=== PATIENT | male | born 1955 | race African-American/Black ===

== ENCOUNTER 2024-11-25 13:41 | Inpatient (IN) ==
[2024-11-25] MEDS: METHYLPREDNISOLONE SOD SUCC/PF 125 MG/2 ML VIAL IVP ONE (13:50)
--- NOTE | 2024-11-25 13:53 | Emergency Department Note ---
HPI - General Adult General Chief complaint: SOB -Shortness of Breath Stated complaint: SOB Time Seen by Provider: 11/25/24 13:46 Source: patient Mode of arrival: walk-in Limitations: no limitations History of Present Illness HPI narrative: This is a 69 year old male patient that presents to the ER with c/o cough, SOB, chest tightness, wheezing since last night. Patient has a hx of COPD. Patient denies any abdominal pain, back pain, fever, chills or N/V. patient denies any numbness, tingling, or weakness Onset (ago): hour(s) (24) Relieving factors: Reports none Exacerbating factors: Reports none Associated symptoms: Reports chest pain (tightness) and cough Treatments prior to arrival: Reports none Related Data Home Medications Medication Instructions Recorded Confirmed albuterol sulfate 90 mcg/actuation 2 puff inhalation Q4H 10/15/24 10/15/24 aerosol inhaler budesonide 160 mcg-glycopyr 9 2 inh inhalation BID 10/15/24 10/15/24 mcg-formot 4.8 mcg/actuation HFA inhaler ([employer]) fluticasone propionate 50 2 spray intranasal DAILY 10/15/24 10/15/24 mcg/actuation nasal spray,suspension levothyroxine 200 mcg tablet 200 mcg PO DAILY 10/15/24 10/15/24 tadalafil 5 mg tablet 5 mg PO DAILY 10/15/24 10/15/24 tamsulosin 0.4 mg capsule 0.4 mg PO DAILY 10/15/24 10/15/24 Allergies Allergy/AdvReac Type Severity Reaction Status Date / Time No Known Drug Allergies Allergy Verified 11/25/24 13:50 Review of Systems Status of ROS 10 or more systems reviewed and unremark able except as noted in history and below Constitutional Denies: fever, chills, change in weight, fatigue, malaise or night sweats Eyes Denies: change in vision, blurry vision, blind spots, light sensitivity, eye discomfort or eye discharge Ears, nose, mouth, and throat Denies: throat pain, neck pain, throat swelling, difficulty swallowing, hoarseness, mouth pain or swelling of lips/tongue Cardiovascular Reports: chest pain, shortness of breath with exertion and shortness of breath when lying down; Denies: palpitations, edema, swelling of feet/ankles, lightheadedness, leg pain with exertion or bluish discoloration of hands/feet Respiratory Reports: shortness of breath, cough and wheezing; Denies: stridor, pain on inspiration, change in phlegm color, coughing up blood or chest congestion Gastrointestinal Denies: abdominal pain, nausea, vomiting, coffee grounds in vomit, heartburn, diarrhea or constipation Genitourinary Denies: painful urination, urinary frequency, urinary urgency, blood in urine, genital pain or genital lesion Musculoskeletal Denies: back pain, neck pain, extremity pain, extremity swelling, joint pain, limited range of motion or joint swelling Integumentary/Breast Denies: rash, itching, redness, skin pain, skin tenderness, skin swelling, sores or new lesion Neurological Denies: headache, numbness in extremities, weakness in extremities, lack of coordination, dizziness or vertigo Psychiatric Denies: anxiety, mood swings, panic attacks, change in sleep pattern, hopelessness or loss of interest Endocrine Denies: excessive urination, excessive thirst, fatigue, cold intolerance or excessive sweating Hematologic/Lymphatic Denies: easy bruising, easy bleeding or enlarged lymph nodes Allergic/Immunologic Denies: hives, throat swelling, tongue swelling, facial swelling, wheezing or itchy eyes PFSH PFS Medical History (Updated 10/20/24 @ 10:32 by Jose Page RN) Colostomy in place Hx of intestinal obstruction Arthritis COPD (chronic obstructive pulmonary disease) Surgical History Hx of hernia repair Social History (Updated 10/15/24 @ 11:15 by Jessica Schaffer RN) Smoking status: current every day smoker What tobacco products do you use: cigarettes Cigarettes per day: 5 Years smoked: 40 Smoking pack-years: 10.00 Within the past year, how often did you have a drink containing alcohol: never Score interpretation: A score less than 4 is consistent with normal alcohol consumption. Non-prescribed substance use: denies use Are you now , , , , never or living with a partner: Feel stressed/tense/nervous/anxious/difficulty sleeping: to some extent Life stressors: other Life stressor details: 1 Due to disability, difficulty making decisions: No Exam Constitutional: normal general appearance and no apparent distress Vital Signs - 24 hr 11/25/24 13:43 11/25/24 14:00 11/25/24 14:03 Temperature 98.6 F Pulse Rate 117 H 103 H Respiratory Rate 20 20 Blood Pressure 135/84 135/84 Pulse Oximetry 79 L 83 L 88 L Oxygen Delivery Me thod Room Air Nasal Cannula Oxygen Flow Rate 2 11/25/24 14:28 11/25/24 14:30 Temperature Pulse Rate 101 H Respiratory Rate 20 Blood Pressure 128/80 Pulse Oximetry 93 L 98 Oxygen Delivery Me thod Nasal Cannula Oxygen Flow Rate 3 HENMT: normocephalic, head/scalp atraumatic, hearing grossly normal bilaterally, external ears normal, nasal mucous membranes normal, external nose normal, oral mucous membranes normal and oropharynx normal Eyes: PERRL, EOMs intact bilaterally and conjunctivae normal Neck/C-Spine: visual inspection normal and trachea midline Lymph: no lymphadenopathy noted Chest: inspection of chest normal and palpation of chest normal Respiratory: breath sounds equal bilaterally, abnormal respiratory effort (shallow breathing) and (labored), auscultation abnormal (diminished breath sound), wheezing noted (scattered wheezes), no rales, no retractions, no use of accessory muscles and chest percussion normal Cardiovascular: normal heart rate noted, regular rhythm noted, no gallop, no murmur, no JVD, no clicks, peripheral pulses 2+ throughout and no additional abnormal heart sounds Gastrointestinal: abdomen normal to inspection, abdomen soft to palpation, nontender to palpation, nontender to percussion, nondistended, normoactive bowel sounds, no hepatosplenomegaly, no masses, no pulsatile mass, no ascites and no hernia Genitourinary: no CVA tenderness Back/Pelvis: spine normal to inspection Extremities: normal to inspection, normal to palpation, no tenderness, full ROM, no joint enlargement and no deformity Neurology: no movement abnormality noted, no focal motor deficit noted, no sensory deficits noted, gait normal, speech normal, coordination normal, no pronator drift noted, no fasciculations noted and GCS normal Psychiatry: mental status grossly normal, oriented x3, thought process normal, cooperative and affect normal Skin: skin color normal Course Course Hospital Course: 1508: LS improved after meds and nebs. patient states he is feeling a little better but needs something for a headache. Patient is neurologically intact. VSS, no s/s of acute distress noted Vital Signs Vital signs: Vital Signs Temperature 98.6 F 11/25/24 13:43 Pulse Rate 117 H 11/25/24 13:43 Respiratory Rate 20 11/25/24 13:43 Blood Pressure 135/84 11/25/24 13:43 Pulse Oximetry 79 L 11/25/24 13:43 Oxygen Delivery Method Room Air 11/25/24 13:43 Temperature 98.6 F 11/25/24 13:43 Pulse Rate 101 H 11/25/24 14:30 Respiratory Rate 20 11/25/24 14:30 Blood Pressure 128/80 11/25/24 14:30 Pulse Oximetry 98 11/25/24 14:30 Oxygen Delivery Method Nasal Cannula 11/25/24 14:30 Oxygen Flow Rate 3 11/25/24 14:30 Medical Decision Making Differential Diagnosis Differential Diagnosis: URI, viral illness, dyspnea Medical Records Medical records reviewed: Yes I reviewed the patient's medical records Lab Data Lab results reviewed: Yes I reviewed the patient's lab results Labs: Lab Results 11/25/24 11/25/24 11/25/24 Range/Units 13:48 13:48 14:00 WBC 4.9 (3.7-9.6) K/uL RBC 5.2 (4.40-5.80) M/uL Hgb 15.4 (14.0-17.4) gm/dL Hct 46.5 (41.3-50.1) % MCV 90.0 (81.9-96.5) fl MCH 29.9 (27.6-33.7) pg MCHC 33.2 (33.0-35.7) g/dl RDW 15.1 H (11.0-14.8) % Plt Count 174 (142-355) K/uL MPV 8.3 (6.0-10.4) fl Gran % 59.4 (49.1-73.1) % Lymph % (Auto) 22.2 (17.6-39.05) % [place] % (Auto) 12.9 H (4.5-10.7) % Eos % (Auto) 4.8 H (0.0-4.0) % Baso % (Auto) 0.7 (0.0-1.3) Lymph # (Auto) 1.1 (0.8-2.9) [place] # (Auto) 0.6 (0.2-0.8) Eos # (Auto) 0.2 (0.0-0.3) Baso # (Auto) 0.0 (0.0-0.1) Absolute Gran (auto) 2.9 (2.0-6.2) ABG pH 7.26 L* (7.35-7.45) ABG pCO2 54 H (35-45) mmHg ABG pO2 121 H 161 (60-100) mmHg ABG HCO3 24.2 (22-26) mmo1/L ABG Total CO2 25.9 mmo1/L ABG O2 Saturation 98 (92-100) % ABG Base Excess -3.4 L (-2-2) mmo1/L A-a O2 Gradient 40 mmHg Respiratory Index 0.3 (0-1) FiO2 32.0 % Sodium 136 (136-145) mmol/L Potassium 4.4 (3.6-5.2) mmol/L Chloride 104.0 (98-107) mmol/L Carbon Dioxide 27 (21-32) mmol/L Anion Gap 5.0 (4-14) mEq/L BUN 17 (7-18) mg/dL Creatinine 2.1 H (0.6-1.3) mg/dL Estimated GFR 33.7 (>59.9) Glucose 84 (70-110) mg/dL Calcium 8.7 (8.5-10.1) mg/dL Total Bilirubin 0.45 (0.0-1.0) mg/dL AST 24 (15-37) U/L ALT 17 L (30-65) U/L Alkaline Phosphatase 61 (50-136) U/L Troponin I High Sens 22.50 (4.0-60.4) ng/L B-Natriuretic Peptide 10.1 (0-100) pg/mL Total Protein 8.3 H (6.4-8.2) g/dL Albumin 3.9 (3.4-5.0) g/dL Influenza Type A Ag Negative (Negative) Influenza Type B Ag Negative (Negative) ECG Data Attestation: I have reviewed the pertinent ECG results. Discharge Plan Discharge Patient Disposition: Admitted As Observation Condition: Stable Chief Complaint: SOB -Shortness of Breath Clinical Impression: Acute exacerbation of chronic obstructive pulmonary disease, Hypoxia, Dehydration, Acute on chronic kidney failure Prescriptions: No Action albuterol sulfate 90 mcg/actuation HFA aerosol inhaler 2 puff INHALATION Q4H Patient Comments: INHALE TWO PUFFS BY MOUTH EVERY 4 HOURS fluticasone propionate 50 mcg/actuation spray,suspension 2 spray INTRANASAL DAILY Patient Comments: USE 2 SPRAYS IN EACH NOSTRIL ONCE DAILY levothyroxine 200 mcg tablet 200 mcg PO DAILY Patient Comments: TAKE 1 TABLET BY MOUTH EVERY MORNING ON EMPTY STOMACH 30 MINUTES BEFORE BREAKFAST tadalafil 5 mg tablet 5 mg PO DAILY Patient Comments: TAKE ONE TABLET BY MOUTH DAILY tamsulosin 0.4 mg capsule 0.4 mg PO DAILY Patient Comments: TAKE ONE CAPSULE BY MOUTH ONCE DAILY [employer] 160-9-4.8 mcg/actuation HFA aerosol inhaler 2 inh INHALATION BID Patient Comments: INHALE 2 PUFFS BY MOUTH TWICE DAILY Print Language: Polish Referrals: Garry Frances MD [Primary Care Provider] - Time of Disposition: 15:11
[2024-11-25] MEDS: BUDESONIDE 0.5 MG/2 ML AMPUL.NEB INH ONE (14:02)
[2024-11-25] MEDS: IPRATROPIUM/ALBUTEROL SULFATE 3 ML AMPUL.NEB INH ONE ×2 (14:02→14:27)
[2024-11-25 14:04] LABS: Basophils%(Percent) Auto 0.7 (0.0-1.3); Eosinophils#(Absolute)Auto 0.2 (0.0-0.3); Eosinophils%(Percent) Auto 4.8 % (0.0-4.0); Granulocytes % - Auto 59.4 % (49.1-73.1); Granulocytes#(Absolute)- Auto 2.9 (2.0-6.2); Hematocrit 46.5 % (41.3-50.1); Monocytes #(Absolute)- Auto 0.6 (0.2-0.8); Monocytes %(Percent)- Auto 12.9 % (4.5-10.7); Platelet Count 174 K/uL (142-355); White Blood Count 4.9 K/uL (3.7-9.6)
[2024-11-25 14:31] LABS: Potassium 4.4 mmol/L (3.6-5.2)
[2024-11-25 14:42] LABS: Oxygen Saturation ABG 98 % (92-100)
[2024-11-25 14:45] LABS: Base Excess ABG -3.4 mmo1/L (-2-2); PCO2 ABG 54 mmHg (35-45); PO2 ABG 121 mmHg (60-100); pH ABG 7.26 (7.35-7.45)
[2024-11-25] MEDS: 0.9 % SODIUM CHLORIDE 500 ML IV ONE (15:08)
[2024-11-25] MEDS: ACETAMINOPHEN 500 MG TABLET PO ONE (15:12)
[2024-11-25] MEDS ORDERED: ACETAMINOPHEN 500 MG TABLET PO PRN (17:00)
[2024-11-25] MEDS ORDERED: MAGNESIUM, ALUMINUM HYDROXIDE 30 ML ORAL.SUSP PO PRN (17:00)
[2024-11-25] MEDS ORDERED: bisacodyL 10 MG SUPP.RECT PR PRN (17:00)
[2024-11-25] MEDS: IPRATROPIUM/ALBUTEROL SULFATE 3 ML AMPUL.NEB INH SCH (17:54)
[2024-11-26 04:46] LABS: Potassium 5.8 mmol/L (3.6-5.2)
[2024-11-26 04:49] LABS: Basophils%(Percent) Auto 0.1 (0.0-1.3); Granulocytes % - Auto 81.8 % (49.1-73.1); Granulocytes#(Absolute)- Auto 2.2 (2.0-6.2); Hematocrit 41.4 % (41.3-50.1); Mean Corpuscular Volume 90.2 fl (81.9-96.5); Monocytes #(Absolute)- Auto 0.1 (0.2-0.8); Monocytes %(Percent)- Auto 3.8 % (4.5-10.7); Platelet Count 169 K/uL (142-355); White Blood Count 2.7 K/uL (3.7-9.6)
[2024-11-26] MEDS: 0.9 % SODIUM CHLORIDE 500 ML IV ONE (10:00)
[2024-11-26] MEDS: PANTOPRAZOLE SODIUM 40 MG TABLET.DR PO SCH (10:00)
[2024-11-26] MEDS: ENOXAPARIN SODIUM 40 MG/0.4 ML SYRINGE SUBQ SCH (10:00)
[2024-11-26] MEDS: LEVOTHYROXINE SODIUM 100 MCG TABLET PO SCH (10:00)
[2024-11-26] MEDS: TAMSULOSIN HCL 0.4 MG CAPSULE PO SCH (10:00)
[2024-11-26] MEDS ORDERED: 0.9 % SODIUM CHLORIDE 1000 ML 1,000 ML IV SCH (10:00)
[2024-11-26] MEDS: HYDROCODONE/CHLORPHEN P-STIREX 5 ML SUS.ER.12H PO PRN (10:01)
[2024-11-26] MEDS: METHYLPREDNISOLONE SOD SUCC/PF 40 MG/ML VIAL INJ SCH (10:01)
[2024-11-26 10:32] LABS: Base Excess ABG -2.4 mmo1/L (-2-2); PCO2 ABG 53 mmHg (35-45); PO2 ABG 57 mmHg (60-100); pH ABG 7.28 (7.35-7.45)
[2024-11-26 10:33] LABS: Oxygen Saturation ABG 85 % (92-100)
[2024-11-26] MEDS: 0.9 % SODIUM CHLORIDE 1000 ML 1,000 ML IV SCH (10:49)
[2024-11-26] MEDS: AZITHROMYCIN 500 MG 500 MG in 0.9 % SODIUM CHLORIDE 250 ML IV SCH (10:49)
--- NOTE | 2024-11-26 10:53 | History & Physical Report ---
H&P: HPI History of Present Illness Chief complaint: copd exacerbation,arf on crf, dehydration,hypoxia Narrative: This is a 69 year old male patient that presents to the ER with c/o cough, SOB, chest tightness, wheezing since last night. Patient has a hx of COPD. Patient denies any abdominal pain, back pain, fever, chills or N/V. patient denies any numbness, tingling, or weakness. Admitted patient to med/surg for further observation and treatment. Day one of hospital stay, patient complaining of cough and shortness of breath feels worse today and more tired. Chest X-Ray shows "Enphysematous COPD". Nurse reports breath sounds are tight and not fair air movement this a.m. Patients O2 dropped to 60s this a.m when he got us to walk to the restroom; he received a breathing treatment 10 minutes prior to this event. When respiratory entered room, patient was spO2 was 89%, patient was able to recover to 94%. Nurse encourage patient to use urinal if possible. patient states feels like shooting pain and tight when he tries to force a cough or a breath today Review of Systems Status of ROS 10 or more systems reviewed and unremark able except as noted in history and below Constitutional Denies: fever, chills, change in weight, fatigue, malaise or night sweats Eyes Denies: change in vision, blurry vision, blind spots, light sensitivity, eye discomfort or eye discharge Ears, nose, mouth, and throat Denies: throat pain, neck pain, throat swelling, difficulty swallowing, hoarseness, mouth pain, swelling of lips/tongue or vertigo Cardiovascular Reports: chest pain, shortness of breath with exertion and shortness of breath when lying down; Denies: palpitations, edema, swelling of feet/ankles, lightheadedness, leg pain with exertion or bluish discoloration of hands/feet Respiratory Reports: shortness of breath and cough; Denies: wheezing, stridor, pain on inspiration, change in phlegm color, coughing up blood or chest congestion Gastrointestinal Denies: abdominal pain, nausea, vomiting, coffee grounds in vomit, heartburn, diarrhea, constipation or difficulty swallowing Genitourinary Denies: painful urination, urinary frequency, urinary urgency, blood in urine, genital pain or genital lesion Musculoskeletal Denies: back pain, neck pain, extremity pain, extremity swelling, joint pain, limited range of motion or joint swelling Integumentary/Breast Denies: rash, itching, redness, skin pain, skin tenderness, skin swelling, sores or new lesion Neurological Denies: headache, numbness in extremities, weakness in extremiti es, lack of coordination, dizziness or vertigo Psychiatric Denies: anxiety, mood swings, panic attacks, change in sleep pattern, hopelessness or loss of interest Endocrine Denies: excessive urination, excessive thirst, fatigue, cold intolerance or excessive sweating Hematologic/Lymphatic Denies: easy bruising, easy bleeding or enlarged lymph nodes Allergic/Immunologic Denies: hives, throat swelling, tongue swelling, facial swelling, wheezing or itchy eyes PFSH PFSH Medical History Colostomy in place Hx of intestinal obstruction Arthritis COPD (chronic obstructive pulmonary disease) Surgical History Hx of hernia repair Social History Smoking status: current every day smoker What tobacco products do you use: cigarettes Cigarettes per day: 5 Years smoked: 40 Smoking pack-years: 10.00 Within the past year, how often did you have a drink containing alcohol: never Score interpretation: A score less than 4 is consistent with normal alcohol consumption. Non-prescribed substance use: denies use Problems where you live: no known problems Highest level of school completed/degree received: high school Are you now , , , , never or living with a partner: Feel stressed/tense/nervous/anxious/difficulty sleeping: to some extent Life stressors: other Life stressor details: health issues Due to disability, difficulty making decisions: No Meds Home Medications and Allergies Home Medications Medication Instructions Recorded Confirmed Type albuterol sulfate 90 mcg/actuation 2 puff inhalation Q4H 10/15/24 11/25/24 History aerosol inhaler budesonide 160 mcg-glycopyr 9 2 inh inhalation BID 10/15/24 11/25/24 History mcg-formot 4.8 mcg/actuation HFA inhaler (Breztri Aerosphere) fluticasone propionate 50 2 spray intranasal DAILY 10/15/24 11/25/24 History mcg/actuation nasal spray,suspension levothyroxine 200 mcg tablet 200 mcg PO DAILY 10/15/24 11/25/24 History tadalafil 5 mg tablet 5 mg PO DAILY 10/15/24 11/25/24 History tamsulosin 0.4 mg capsule 0.4 mg PO DAILY 10/15/24 11/25/24 History Allergies Allergy/AdvReac Type Severity Reaction Status Date / Time No Known Drug Allergies Allergy Verified 11/25/24 13:50 Exam Exam: Patient in cai's position, resting, upon entering room for exam. Constitutional: abnormal general appearance (lethargic), distress noted (moderate) and (respiratory), average body habitus, limitations noted (physical limitations) and alert Vital Signs - 24 hr 11/25/24 13:43 11/25/24 14:00 11/25/24 14:03 Temperature 98.6 F Pulse Rate 117 H 103 H Pulse Rate [Brachi al] Respiratory Rate 20 20 Blood Pressure 135/84 135/84 Blood Pressure [Le ft Arm] Pulse Oximetry 79 L 83 L 88 L Oxygen Delivery Me thod Room Air Nasal Cannula Oxygen Flow Rate 2 11/25/24 14:28 11/25/24 14:30 11/25/24 15:34 Temperature Pulse Rate 101 H Pulse Rate [Brachi al] Respiratory Rate 20 Blood Pressure 128/80 Blood Pressure [Le ft Arm] Pulse Oximetry 93 L 98 Oxygen Delivery Me thod Nasal Cannula Nasal Cannula Oxygen Flow Rate 3 2 11/25/24 16:00 11/25/24 17:54 11/25/24 21:00 Temperature 98.6 F Pulse Rate 101 H Pulse Rate [Brachi al] Respiratory Rate 20 Blood Pressure 128/80 Blood Pressure [Le ft Arm] Pulse Oximetry 98 96 95 Oxygen Delivery Me thod Oxygen Flow Rate 11/25/24 21:01 11/26/24 07:30 11/26/24 08:00 Temperature 97.5 F L Pulse Rate Pulse Rate [Brachi al] 113 H Respiratory Rate 26 H Blood Pressure Blood Pressure [Le ft Arm] 137/71 Pulse Oximetry 95 96 90 L Oxygen Delivery Me thod Nasal Cannula Nasal Cannula Oxygen Flow Rate 2 3 HENMT: normocephalic, head/scalp atraumatic, hearing grossly normal bilaterally, external ears normal, nasal mucous membranes normal, external nose normal, oral mucous membranes normal, oropharynx normal and dentition abnormal Eyes: PERRL, EOMs intact bilaterally, conjunctivae normal, papilledema noted and periorbital findings normal Neck/C-Spine: trachea midline, cervical spine nontender, abnormal cervical ROM noted, supple, no meningeal signs, thyroid normal and no carotid bruits Lymph: no lymphadenopathy noted and no lymphedema noted Chest: inspection of chest normal and palpation of chest normal Respiratory: breath sounds equal bilaterally, abnormal respiratory effort (shallow breathing) and (labored), auscultation abnormal (diminished breath sound), wheezing noted (expiratory wheezes), (inspiratory wheezes) and (scattered wheezes), no rales, no retractions, use of accessory muscles noted and chest percussion normal Cardiovascular: heart rate abnormal (tachycardic), regular rhythm noted, no gallop, no rub, no murmur, no JVD, no clicks, peripheral pulses 2+ throughout, bruit(s) noted and no additional abnormal heart sounds Gastrointestinal: abdomen abnormal to inspection (large hernia ventral and colostomy in place right side), abdomen firm to palpation (hernia ventral and colostomy in place right side), nontender to palpation, tender to percussion, nondistended, abnormal bowel sounds noted, no hepatosplenomegaly, no masses, no pulsatile mass, no ascites and hernia noted (ventral) Genitourinary: no CVA tenderness and bladder abnormal to palpation Back/Pelvis: no thoracic spine tenderness (increased kyphosis), no lumbar spine tenderness, thoracic spine ROM abnormal and lumbar spine ROM abnormal Extremities: normal to inspection, normal to palpation, no tenderness, abnormal ROM noted, no joint enlargement and no deformity Neurology: group home worker II-XII intact, no movement abnormality noted, no focal motor deficit noted, sensory deficit noted, deep tendon reflexes 2+ bilaterally, gait abnormality noted, speech normal, coordination normal, no pronator drift noted, no fasciculations noted and GCS normal Psychiatry: Mental Status Exam documented within this Exam's Psych section mental status grossly normal, oriented x3, thought process abnormality noted, cooperative, affect abnormality noted (depressed), psychomotor activity normal and memory normal Feel stressed/tense/nervous/anxious/difficulty sleeping: to some extent Life stressors: other Life stressor details: health issues Skin: skin color abnormal Reports (pale), no rash, no lesions, no ecchymosis noted, no wounds, no lacerations, skin turgor abnormal Reports (tenting), no jaundice, no petechiae, no mottling, nails abnormality noted and alopecia noted Assessment and Plan Assessment and Plan (1) Acute respiratory failure with hypoxia and hypercapnia: Code(s): J96.01 - Acute respiratory failure with hypoxia; J96.02 - Acute respiratory failure with hypercapnia (2) COPD exacerbation: Code(s): J44.1 - Chronic obstructive pulmonary disease with (acute) exacerbation (3) SOB (shortness of breath): Code(s): R06.02 - Shortness of breath (4) Hypoxia: Code(s): R09.02 - Hypoxemia (5) Dehydration: Code(s): E86.0 - Dehydration (6) Tachycardia: Code(s): R00.0 - Tachycardia, unspecified (7) Hypothyroid: Qualifiers: Hypothyroidism type: unspecified Qualified Code(s): E03.9 - Hypothyroidism, unspecified Code(s): E03.9 - Hypothyroidism, unspecified (8) Colostomy in place: Code(s): Z93.3 - Colostomy status (9) Hx of intestinal obstruction: Code(s): Z87.19 - Personal history of other diseases of the digestive system (10) Leukopenia: Qualifiers: Leukopenia type: neutropenia Neutropenia type: unspecified Qualified Code(s): D70.9 - Neutropenia, unspecified Code(s): D72.819 - Decreased white blood cell count, unspecified (11) Hyperkalemia: Code(s): E87.5 - Hyperkalemia Plan Sodium Chloride 1,000 mls @ 125 mls/hr IV CONT after a 500 ml bolus Levothyroxine Sodium 200 mcg PO QDAC Tamsulosin Hcl 0.4 mg PO DAILY Albuterol Sulfate 3 ml INH Q4H Methylprednisolone Sodium Succinate 40 mg INJ Q8H Pantoprazole Sodium 40 mg PO BID Enoxaparin Sodium 40 mg SUBQ DAILY Azithromycin 500 mg in Sodium Chloride 250 mls @ 250 mls/hr IV Q24H Budesonide 0.5 mg INH RBID Acetaminophen 500 mg PO Q6H PRN Magnesium Hydroxide 30 ml PO DAILY PRN Bisacodyl [address] DAILY PRN duoneb Sulfate 3 ml INH Q2H PRN tussionex every 12 hours Chlorphenir/Hydrocodone Polistirex 5 ml PO Q12H PRN ABG & EKG ordered and Tussionex to start for cough. Respiratory reports, inspiratory & expiratory wheezing. Results Labs Labs: CBC WBC 2.7 K/uL (3.7-9.6) L 11/26/24 03:49 RBC 4.6 M/uL (4.40-5.80) 11/26/24 03:49 Hgb 13.9 gm/dL (14.0-17.4) L 11/26/24 03:49 Hct 41.4 % (41.3-50.1) 11/26/24 03:49 MCV 90.2 fl (81.9-96.5) 11/26/24 03:49 MCH 30.3 pg (27.6-33.7) 11/26/24 03:49 MCHC 33.6 g/dl (33.0-35.7) 11/26/24 03:49 RDW 15.3 % (11.0-14.8) H 11/26/24 03:49 Plt Count 169 K/uL (142-355) 11/26/24 03:49 MPV 8.6 fl (6.0-10.4) 11/26/24 03:49 Gran % 81.8 % (49.1-73.1) H 11/26/24 03:49 Lymph % (Auto) 14.3 % (17.6-39.05) L 11/26/24 03:49 [place] % (Auto) 3.8 % (4.5-10.7) L 11/26/24 03:49 Eos % (Auto) 0.0 % (0.0-4.0) 11/26/24 03:49 Baso % (Auto) 0.1 (0.0-1.3) 11/26/24 03:49 Lymph # (Auto) 0.4 (0.8-2.9) L 11/26/24 03:49 [place] # (Auto) 0.1 (0.2-0.8) L 11/26/24 03:49 Eos # (Auto) 0.0 (0.0-0.3) 11/26/24 03:49 Baso # (Auto) 0.0 (0.0-0.1) 11/26/24 03:49 Absolute Gran (auto) 2.2 (2.0-6.2) 11/26/24 03:49 BMP Sodium 139 mmol/L (136-145) 11/26/24 03:49 Potassium 5.8 mmol/L (3.6-5.2) H 11/26/24 03:49 Chloride 105.0 mmol/L (98-107) 11/26/24 03:49 Carbon Dioxide 24 mmol/L (21-32) 11/26/24 03:49 Anion Gap 10.0 mEq/L (4-14) 11/26/24 03:49 BUN 27 mg/dL (7-18) H 11/26/24 03:49 Creatinine 2.2 mg/dL (0.6-1.3) H 11/26/24 03:49 Estimated GFR 31.8 (>59.9) 11/26/24 03:49 Glucose 116 mg/dL (70-110) H 11/26/24 03:49 Calcium 8.5 mg/dL (8.5-10.1) 11/26/24 03:49 Total Bilirubin 0.28 mg/dL (0.0-1.0) 11/26/24 03:49 AST 20 U/L (15-37) 11/26/24 03:49 ALT 21 U/L (30-65) L 11/26/24 03:49 Alkaline Phosphatase 47 U/L (50-136) L 11/26/24 03:49 Total Protein 7.4 g/dL (6.4-8.2) 11/26/24 03:49 Albumin 3.4 g/dL (3.4-5.0) 11/26/24 03:49 Cardiac Enzymes Troponin I High Sens 22.50 ng/L (4.0-60.4) 11/25/24 14:00 Liver Function Total Bilirubin 0.28 mg/dL (0.0-1.0) 11/26/24 03:49 AST 20 U/L (15-37) 11/26/24 03:49 ALT 21 U/L (30-65) L 11/26/24 03:49 Alkaline Phosphatase 47 U/L (50-136) L 11/26/24 03:49 Total Protein 7.4 g/dL (6.4-8.2) 11/26/24 03:49 Albumin 3.4 g/dL (3.4-5.0) 11/26/24 03:49 ABG ABG results: 11/25/24 13:48 ABG pH 7.26 L* ABG pCO2 54 H ABG pO2 161 ABG HCO3 24.2 ABG Total CO2 25.9 ABG O2 Saturation 98 ABG Base Excess -3.4 L Attestation: I have reviewed the pertinent ABG results. Interpretation: 11/25/24 13:48 11/26/24 10:18 ABG pH (7.35-7.45) 7.26L* 7.28L* ABG pCO2 (35-45mmHg) 54H 53H ABG pO2 (60-100mmHg) 121H 57L ABG pO2 161 162 ABG PO2/FiO2 Ratio 0.35 ABG HCO3 (22-26mmo1/L) 24.2 24.9 ABG Total CO2 25.9 26.5 ABG O2 Saturation (92-100%) 98 85L* ABG Base Excess (-2-2mmo1/L) -3.4L -2.4L A-a O2 Gradient 40 105 Respiratory Index (0-1) 0.3 1.8H FiO2 32.0 32 Pulse Oximetry Attestation: I have reviewed the pertinent pulse oximetry results. ECG Attestation: I have reviewed the pertinent ECG results. Prior ECG tracings: available for review Imaging Imaging ordered: Chest x-ray Radiologist's impression: Portable chest Date of Service: 11/25/24 HISTORY: Chest pain COMPARISON: 02/24/2024 FINDINGS: Heart size is normal. Louise are normal. Lungs are hyperinflated but free of acute alveolar infiltrates. Emphysematous changes are present in the upper lobes there are some mild interstitial lung changes in the lung bases. No pleural effusion or pneumothorax is identified. IMPRESSION: Emphysematous COPD No acute infiltrates
[2024-11-26] MEDS: IPRATROPIUM/ALBUTEROL SULFATE 3 ML AMPUL.NEB INH PRN (11:39)
[2024-11-26 12:17] LABS: Potassium 4.7 mmol/L (3.6-5.2)
[2024-11-26] MEDS: BUDESONIDE 0.5 MG/2 ML AMPUL.NEB INH SCH (20:52)
[2024-11-27 05:35] LABS: Granulocytes % - Auto 85.8 % (49.1-73.1); Granulocytes#(Absolute)- Auto 3.5 (2.0-6.2); Hematocrit 38.6 % (41.3-50.1); Mean Corpuscular Volume 91.6 fl (81.9-96.5); Monocytes #(Absolute)- Auto 0.1 (0.2-0.8); Monocytes %(Percent)- Auto 3.6 % (4.5-10.7); Platelet Count 147 K/uL (142-355)
[2024-11-27 06:25] LABS: Potassium 5.2 mmol/L (3.6-5.2)
--- NOTE | 2024-11-27 11:09 | Internal Medicine Prog Note ---
Progress Note: A&P Assessment and Plan (1) Acute respiratory failure with hypoxia and hypercapnia: (2) COPD exacerbation: (3) SOB (shortness of breath): (4) Hypoxia: (5) Dehydration: (6) Tachycardia: (7) Hypothyroid: Qualifiers: Hypothyroidism type: unspecified Qualified Code(s): E03.9 - Hypothyroidism, unspecified (8) Colostomy in place: (9) Hx of intestinal obstruction: (10) Leukopenia: Qualifiers: Leukopenia type: neutropenia Neutropenia type: unspecified Qualified Code(s): D70.9 - Neutropenia, unspecified (11) Hyperkalemia: Plan Continue current. No changes today. Slow improvement. Fall Risk Details Nash Fall Scale Risk Level: Moderate Fall Risk Current Medications: Current Medications Acetaminophen (Acetaminophen 500 Mg Tablet) 500 mg PO Q6H PRN PRN Reason: MILD PAIN SCALE 1-4 Albuterol Sulfate (Ipratropium/Albuterol Sulfate 3 Ml Ampul.Neb) 3 ml INH Q4H [facility] Last Admin: 11/27/24 07:58 Dose: 3 ml Albuterol Sulfate (Ipratropium/Albuterol Sulfate 3 Ml Ampul.Neb) 3 ml INH Q2H PRN PRN Reason: Wheezing Last Admin: 11/26/24 17:04 Dose: 3 ml Bisacodyl (Bisacodyl 10 Mg Supp.Rect) 10 mg AL DAILY PRN PRN Reason: Constipation Budesonide (Budesonide 0.5 Mg/2 Ml Ampul.Neb) 0.5 mg INH RBID [facility] Last Admin: 11/27/24 07:57 Dose: 0.5 mg Chlorphenir/Hydrocodone Polistirex (Hydrocodone/Chlorphen P-Stirex 5 Ml Freya.Er.12h) 5 ml PO Q12H PRN PRN Reason: Cough Last Admin: 11/26/24 20:59 Dose: 5 ml Enoxaparin Sodium (Enoxaparin Sodium 40 Mg/0.4 Ml Syringe) 40 mg SUBQ DAILY [facility] Last Admin: 11/27/24 09:00 Dose: 40 mg Azithromycin 500 mg/ Sodium (Chloride) 250 mls @ 250 mls/hr IV Q24H [facility] Stop: 11/28/24 11:59 Last Infusion: 11/26/24 11:49 Dose: Infused Sodium Chloride (Sodium Chloride) 1,000 mls @ 125 mls/hr IV CONT [facility] Last Admin: 11/27/24 03:33 Dose: 125 mls/hr Levothyroxine Sodium (Levothyroxine Sodium 100 Mcg Tablet) 200 mcg PO QDAC [facility] Last Admin: 11/27/24 08:13 Dose: 200 mcg Magnesium Hydroxide (Magnesium, Aluminum Hydroxide 30 Ml Oral.Susp) 30 ml PO DAILY PRN PRN Reason: gerd Methylprednisolone Sodium Succinate (Methylprednisolone Sod Succ/Pf 40 Mg/Ml Vial) 40 mg INJ Q8H [facility] Last Admin: 11/27/24 08:13 Dose: 40 mg Pantoprazole Sodium (Pantoprazole Sodium 40 Mg Tablet.Dr) 40 mg PO BID [facility] Last Admin: 11/27/24 08:13 Dose: 40 mg Tamsulosin HCl (Tamsulosin Hcl 0.4 Mg Capsule) 0.4 mg PO DAILY [facility] Last Admin: 11/27/24 08:13 Dose: 0.4 mg Time Spent With Patient Time: Total time spent is greater than 50% in coordination of care (as documented) at patient's floor/unit and/or counseling patient: Time with patient: less than 15 minutes Internal Medicine - PN: Subj Subjective Interval history: Still easily winded. Spouse at bedside. Breathing does seem to be improving. Still requiring O2. Exam Constitutional: normal general appearance, no apparent distress, average body habitus, no limitations and alert Vital Signs - 24 hr 11/26/24 11:35 11/26/24 15:32 11/26/24 17:04 Temperature Pulse Rate [Brachi al] Respiratory Rate Blood Pressure [Le ft Arm] Pulse Oximetry 96 95 97 Oxygen Delivery Me thod Oxygen Flow Rate 11/26/24 20:00 11/26/24 20:53 11/26/24 20:54 Temperature 97.7 F Pulse Rate [Brachi al] 100 H Respiratory Rate 20 Blood Pressure [Le ft Arm] 104/65 Pulse Oximetry 95 96 96 Oxygen Delivery Me thod Nasal Cannula Nasal Cannula Oxygen Flow Rate 4 4 11/27/24 03:52 11/27/24 07:58 11/27/24 08:00 Temperature 98 F 97.6 F Pulse Rate [Brachi al] 82 79 Respiratory Rate 18 21 Blood Pressure [Le ft Arm] 99/58 98/54 Pulse Oximetry 95 96 98 Oxygen Delivery Me thod Nasal Cannula Nasal Cannula Oxygen Flow Rate 4 HENMT: normocephalic, head/scalp atraumatic, hearing grossly normal bilaterally and external ears normal Eyes: PERRL, EOMs intact bilaterally and conjunctivae normal Neck/C-Spine: visual inspection normal and trachea midline Chest: inspection of chest normal Respiratory: breath sounds equal bilaterally, normal respiratory effort, auscultation abnormal (diminished breath sound), wheezing noted (expiratory wheezes), no retractions and no use of accessory muscles Cardiovascular: normal heart rate noted, regular rhythm noted and no murmur Gastrointestinal: abdomen abnormal to inspection (ileostomy), abdomen soft to palpation, nontender to palpation, nondistended and normoactive bowel sounds Back/Pelvis: thoracic spine ROM normal and lumbar spine ROM normal Neurology: speech normal and no fasciculations noted Psychiatry: mental status grossly normal, oriented x3, thought process normal, cooperative, affect normal, psychomotor activity normal and memory normal Internal Medicine - PN: Obj Da Labs Labs: Laboratory Results - last 24 hr 11/26/24 11/26/24 11/27/24 11:57 12:13 04:50 WBC 4.0 RBC 4.2 L Hgb 12.6 L Hct 38.6 L MCV 91.6 MCH 29.8 MCHC 32.6 L RDW 15.3 H Plt Count 147 MPV 8.5 Gran % 85.8 H Lymph % (Auto) 10.6 L [place] % (Auto) 3.6 L Eos % (Auto) 0.0 Baso % (Auto) 0.0 Lymph # (Auto) 0.4 L [place] # (Auto) 0.1 L Eos # (Auto) 0.0 Baso # (Auto) 0.0 Absolute Gran (auto) 3.5 Sodium 141 142 Potassium 4.7 5.2 Chloride 105.0 109.0 H Carbon Dioxide 28 26 Anion Gap 8.0 7.0 BUN 26 H 27 H Creatinine 2.0 H 2.1 H Estimated GFR 35.7 33.7 Glucose 122 H 133 H Calcium 8.5 8.1 L Phosphorus 3.4 Magnesium 2.1 Total Bilirubin 0.14 AST 17 ALT 13 L Alkaline Phosphatase 43 L Total Protein 6.6 Albumin 3.0 L COVID-19 (ANTHONY) Not detected Respiratory Virus Ag Negative Review of Systems Status of ROS: 10 or more systems reviewed and unremarkable except as noted in history and below Constitutional: Denies: fever, chills, change in weight, fatigue, malaise or night sweats Eyes: Denies: change in vision, blurry vision, blind spots, light sensitivity, eye discomfort or eye discharge Ears, nose, mouth, and throat: Denies: throat pain, neck pain, throat swelling, difficulty swallowing, hoarseness, mouth pain, swelling of lips/tongue or vertigo Cardiovascular: Reports: chest pain, shortness of breath with exertion and shortness of breath when lying down; Denies: palpitations, edema, swelling of feet/ankles, lightheadedness, leg pain with exertion or bluish discoloration of hands/feet Respiratory: Reports: shortness of breath and cough; Denies: wheezing, stridor, pain on inspiration, change in phlegm color, coughing up blood or chest congestion Gastrointestinal: Denies: abdominal pain, nausea, vomiting, coffee grounds in vomit, heartburn, diarrhea, constipation or difficulty swallowing Genitourinary: Denies: painful urination, urinary frequency, urinary urgency, bl ood in urine, genital pain or genital lesion Musculoskeletal: Denies: back pain, neck pain, extremity pain, extremity swelling, joint pain, limited range of motion or joint swelling Integumentary/Breast: Denies: rash, itching, redness, skin pain, skin tenderness, skin swelling, sores or new lesion Neurological: Denies: headache, numbness in extremities, weakness in extremities, lack of coordination, dizziness or vertigo Psychiatric: Denies: anxiety, mood swings, panic attacks, change in sleep patter n, hopelessness or loss of interest Endocrine: Denies: excessive urination, excessive thirst, fatigue, cold intolerance or excessive sweating Hematologic/Lymphatic: Denies: easy bruising, easy bleeding or enlarged lymph nodes Allergic/Immunologic: Denies: hives, throat swelling, tongue swelling, facial swelling, wheezing or itchy eyes
[2024-11-27] MEDS: LORazepam 2 MG/ML VIAL IVP ONE (21:12)
[2024-11-27] MEDS: MAGNESIUM SULFATE 1 GM/2 ML 2 GM in 0.9 % SODIUM CHLORIDE 100ML 100 ML IV ONE (21:30)
[2024-11-27 22:27] LABS: pH ABG 7.07 (7.35-7.45)
[2024-11-27 22:28] LABS: Base Excess ABG -4.7 mmo1/L (-2-2); PCO2 ABG 95 mmHg (35-45); PO2 ABG 83 mmHg (60-100)
[2024-11-27 22:29] LABS: Oxygen Saturation ABG 91 % (92-100)
[2024-11-28 00:12] LABS: PCO2 ABG 75 mmHg (35-45); pH ABG 7.16 (7.35-7.45)
[2024-11-28 00:13] LABS: Base Excess ABG -3.5 mmo1/L (-2-2); Oxygen Saturation ABG 81 % (92-100); PO2 ABG 59 mmHg (60-100)
[2024-11-28 02:22] LABS: PCO2 ABG 61 mmHg (35-45); PO2 ABG 73 mmHg (60-100); pH ABG 7.23 (7.35-7.45)
[2024-11-28 02:23] LABS: Oxygen Saturation ABG 91 % (92-100)
--- NOTE | 2024-11-28 03:12 | Progress Note ---
Progress Note: Subjective Subjective Interval history: Patient is noted to be Laying in hospital bed in apparent distress audible wheezing. Breathing treatment with DuoNeb, Pulmicort, magnesium sulfate and Solu-Medrol. Exam Exam: This patient is noted to be lying in bed in moderate apparent respiratory distress. Constitutional: average body habitus and alert Vital Signs - 24 hr 11/27/24 03:52 11/27/24 07:58 11/27/24 08:00 Temperature 98 F 97.6 F Pulse Rate Pulse Rate [Brachi al] 82 79 Respiratory Rate 18 21 Blood Pressure [Le ft Arm] 99/58 98/54 Pulse Oximetry 95 96 98 Oxygen Delivery Me thod Nasal Cannula Nasal Cannula Oxygen Flow Rate 4 Fraction of Inspir ed Oxygen 11/27/24 11:09 11/27/24 12:00 11/27/24 13:15 Temperature 97.7 F Pulse Rate Pulse Rate [Brachi al] 86 Respiratory Rate 25 H Blood Pressure [Le ft Arm] 110/59 Pulse Oximetry 96 95 97 Oxygen Delivery Me thod Room Air Oxygen Flow Rate 4 Fraction of Inspir ed Oxygen 11/27/24 15:00 11/27/24 16:00 11/27/24 20:00 Temperature 98.5 F 97.9 F Pulse Rate Pulse Rate [Brachi al] 79 80 Respiratory Rate 24 15 Blood Pressure [Le ft Arm] 95/54 105/53 Pulse Oximetry 97 95 95 Oxygen Delivery Me thod Nasal Cannula Nasal Cannula Oxygen Flow Rate 4 4 Fraction of Inspir ed Oxygen 11/27/24 20:00 11/27/24 20:58 11/27/24 21:46 Temperature Pulse Rate 100 H Pulse Rate [Brachi al] Respiratory Rate Blood Pressure [Le ft Arm] Pulse Oximetry 94 L Oxygen Delivery Me thod Nasal Cannula Oxygen Flow Rate 4 Fraction of Inspir ed Oxygen 36 28 11/27/24 22:57 11/27/24 23:02 11/28/24 00:28 Temperature Pulse Rate 89 Pulse Rate [Brachi al] 97 H Respiratory Rate 24 Blood Pressure [Le ft Arm] 125/54 Pulse Oximetry 92 L Oxygen Delivery Me thod BiPAP Oxygen Flow Rate Fraction of Inspir ed Oxygen 28 28 11/28/24 02:00 Temperature Pulse Rate Pulse Rate [Brachi al] 74 Respiratory Rate 20 Blood Pressure [Le ft Arm] 113/62 Pulse Oximetry 95 Oxygen Delivery Me thod BiPAP Oxygen Flow Rate Fraction of Inspir ed Oxygen HENMT: normocephalic, head/scalp atraumatic and hearing grossly normal bilaterally Eyes: PERRL, EOMs intact bilaterally, conjunctivae normal and no scleral icterus Neck/C-Spine: visual inspection normal, trachea midline, cervical spine nontender and cervical full ROM noted Lymph: no lymphadenopathy noted and no lymphedema noted Chest: inspection of chest normal, palpation of chest normal and inspection of breasts normal Respiratory: Bilateral wheezing Cardiovascular: normal heart rate noted, regular rhythm noted, no gallop and no rub Gastrointestinal: Multiple surgical scars, colostomy in place. Genitourinary: no CVA tenderness, bladder normal to palpation and external appearance normal Back/Pelvis: spine normal to inspection, no thoracic spine tenderness and no lumbar spine tenderness Extremities: normal to inspection, normal to palpation and no tenderness Neurology: brand recorder II-XII intact, no movement abnormality noted and no focal motor deficit noted Psychiatry: mental status grossly normal, oriented x3, thought process normal and cooperative Feel stressed/tense/nervous/anxious/difficulty sleeping: not at all Due to disability, difficulty making decisions: No Skin: skin color normal, no rash and no lesions Progress Note: Objective Labs Labs: CBC WBC 4.0 K/uL (3.7-9.6) 11/27/24 04:50 RBC 4.2 M/uL (4.40-5.80) L 11/27/24 04:50 Hgb 12.6 gm/dL (14.0-17.4) L 11/27/24 04:50 Hct 38.6 % (41.3-50.1) L 11/27/24 04:50 MCV 91.6 fl (81.9-96.5) 11/27/24 04:50 MCH 29.8 pg (27.6-33.7) 11/27/24 04:50 MCHC 32.6 g/dl (33.0-35.7) L 11/27/24 04:50 RDW 15.3 % (11.0-14.8) H 11/27/24 04:50 Plt Count 147 K/uL (142-355) 11/27/24 04:50 MPV 8.5 fl (6.0-10.4) 11/27/24 04:50 Gran % 85.8 % (49.1-73.1) H 11/27/24 04:50 Lymph % (Auto) 10.6 % (17.6-39.05) L 11/27/24 04:50 [place] % (Auto) 3.6 % (4.5-10.7) L 11/27/24 04:50 Eos % (Auto) 0.0 % (0.0-4.0) 11/27/24 04:50 Baso % (Auto) 0.0 (0.0-1.3) 11/27/24 04:50 Lymph # (Auto) 0.4 (0.8-2.9) L 11/27/24 04:50 [place] # (Auto) 0.1 (0.2-0.8) L 11/27/24 04:50 Eos # (Auto) 0.0 (0.0-0.3) 11/27/24 04:50 Baso # (Auto) 0.0 (0.0-0.1) 11/27/24 04:50 Absolute Gran (auto) 3.5 (2.0-6.2) 11/27/24 04:50 BMP Sodium 142 mmol/L (136-145) 11/27/24 04:50 Potassium 5.2 mmol/L (3.6-5.2) 11/27/24 04:50 Chloride 109.0 mmol/L (98-107) H 11/27/24 04:50 Carbon Dioxide 26 mmol/L (21-32) 11/27/24 04:50 Anion Gap 7.0 mEq/L (4-14) 11/27/24 04:50 BUN 27 mg/dL (7-18) H 11/27/24 04:50 Creatinine 2.1 mg/dL (0.6-1.3) H 11/27/24 04:50 Estimated GFR 33.7 (>59.9) 11/27/24 04:50 Glucose 133 mg/dL (70-110) H 11/27/24 04:50 Calcium 8.1 mg/dL (8.5-10.1) L 11/27/24 04:50 Phosphorus 3.4 mg/dL (2.5-4.9) 11/27/24 04:50 Magnesium 2.1 mg/dL (1.8-2.4) 11/27/24 04:50 Total Bilirubin 0.14 mg/dL (0.0-1.0) 11/27/24 04:50 AST 17 U/L (15-37) 11/27/24 04:50 ALT 13 U/L (30-65) L 11/27/24 04:50 Alkaline Phosphatase 43 U/L (50-136) L 11/27/24 04:50 Total Protein 6.6 g/dL (6.4-8.2) 11/27/24 04:50 Albumin 3.0 g/dL (3.4-5.0) L 11/27/24 04:50 Cardiac Enzymes Troponin I High Sens 22.50 ng/L (4.0-60.4) 11/25/24 14:00 Liver Function Total Bilirubin 0.14 mg/dL (0.0-1.0) 11/27/24 04:50 AST 17 U/L (15-37) 11/27/24 04:50 ALT 13 U/L (30-65) L 11/27/24 04:50 Alkaline Phosphatase 43 U/L (50-136) L 11/27/24 04:50 Total Protein 6.6 g/dL (6.4-8.2) 11/27/24 04:50 Albumin 3.0 g/dL (3.4-5.0) L 11/27/24 04:50 ABG Attestation: I personally reviewed and interpreted this ABG as follows: Pulse Oximetry SpO2 results: 80% Interpretation: Hypoxia Imaging Chest x-ray: Attestation: I personally reviewed and interpreted this imaging study as follows: Radiologist's impression: PROCEDURE: Chest X-ray 1 View. HISTORY: Respiratory distress. TECHNIQUE: AP view. COMPARISON: 11/25/2024. TECHNICAL QUALITY: Satisfactory. FINDINGS: Normal size heart. Mediastinum and hilar regions show no masses or lymphadenopathy. Normal central vascularity. No pulmonary consolidation, masses, pleural fluid, or pneumothorax. No acute bony abnormality. IMPRESSION: No evidence of active cardiopulmonary disease. Progress Note: A&P Assessment and Plan (1) Acute respiratory failure with hypoxia and hypercapnia: Assessment and Plan: BiPAP improving, Initial CO2 on ABG is 95 improved to 75 then 61. Continue BiPAP. (2) COPD exacerbation: Assessment and Plan: Continue breathing treatment, Supplemental oxygen via nasal cannula, antibiotics, steroids. (3) SOB (shortness of breath): Assessment and Plan: Supplemental oxygen (4) Hypoxia: Assessment and Plan: Supplemental oxygen via BiPAP. (5) Dehydration: (6) Tachycardia: (7) Hypothyroid: Qualifiers: Hypothyroidism type: unspecified Qualified Code(s): E03.9 - Hypothyroidism, unspecified (8) Colostomy in place: (9) Hx of intestinal obstruction: (10) Leukopenia: Qualifiers: Leukopenia type: neutropenia Neutropenia type: unspecified Qualified Code(s): D70.9 - Neutropenia, unspecified (11) Hyperkalemia: Plan Continue current. No changes today. Slow improvement. Fall Risk Details Nash Fall Scale Risk Level: Moderate Fall Risk Current Medications: Current Medications Acetaminophen (Acetaminophen 500 Mg Tablet) 500 mg PO Q6H PRN PRN Reason: MILD PAIN SCALE 1-4 Albuterol Sulfate (Ipratropium/Albuterol Sulfate 3 Ml Ampul.Neb) 3 ml INH Q4H [facility] Last Admin: 11/28/24 00:28 Dose: 3 ml Albuterol Sulfate (Ipratropium/Albuterol Sulfate 3 Ml Ampul.Neb) 3 ml INH Q2H PRN PRN Reason: Wheezing Last Admin: 11/27/24 13:15 Dose: 3 ml Bisacodyl (Bisacodyl 10 Mg Supp.Rect) 10 mg AR DAILY PRN PRN Reason: Constipation Budesonide (Budesonide 0.5 Mg/2 Ml Ampul.Neb) 0.5 mg INH RBID [facility] Last Admin: 11/27/24 20:00 Dose: 0.5 mg Chlorphenir/Hydrocodone Polistirex (Hydrocodone/Chlorphen P-Stirex 5 Ml Freya.Er.12h) 5 ml PO Q12H PRN PRN Reason: Cough Last Admin: 11/27/24 15:41 Dose: 5 ml Enoxaparin Sodium (Enoxaparin Sodium 40 Mg/0.4 Ml Syringe) 40 mg SUBQ DAILY [facility] Last Admin: 11/27/24 09:00 Dose: 40 mg Azithromycin 500 mg/ Sodium (Chloride) 250 mls @ 250 mls/hr IV Q24H [facility] Stop: 11/28/24 11:59 Last Infusion: 11/27/24 13:26 Dose: Infused Sodium Chloride (Sodium Chloride) 1,000 mls @ 125 mls/hr IV CONT [facility] Last Infusion: 11/27/24 22:50 Dose: Infused Levothyroxine Sodium (Levothyroxine Sodium 100 Mcg Tablet) 200 mcg PO QDAC [facility] Last Admin: 11/27/24 08:13 Dose: 200 mcg Magnesium Hydroxide (Magnesium, Aluminum Hydroxide 30 Ml Oral.Susp) 30 ml PO DAILY PRN PRN Reason: gerd Methylprednisolone Sodium Succinate (Methylprednisolone Sod Succ/Pf 40 Mg/Ml Vial) 40 mg INJ Q8H [facility] Last Admin: 11/28/24 01:43 Dose: Not Given Pantoprazole Sodium (Pantoprazole Sodium 40 Mg Tablet.Dr) 40 mg PO BID [facility] Last Admin: 11/27/24 22:49 Dose: Not Given Tamsulosin HCl (Tamsulosin Hcl 0.4 Mg Capsule) 0.4 mg PO DAILY [facility] Last Admin: 11/27/24 08:13 Dose: 0.4 mg Time Spent With Patient Time: Total time spent is greater than 50% in coordination of care (as documented) at patient's floor/unit and/or counseling patient: Time with patient: greater than 35 minutes
[2024-11-28 04:33] LABS: PCO2 ABG 65 mmHg (35-45); PO2 ABG 58 mmHg (60-100); pH ABG 7.23 (7.35-7.45)
[2024-11-28 04:34] LABS: Base Excess ABG -1.6 mmo1/L (-2-2); Oxygen Saturation ABG 84 % (92-100)
[2024-11-28] MEDS ORDERED: IPRATROPIUM/ALBUTEROL SULFATE 3 ML AMPUL.NEB INH ONE ×2 (07:03→11:02)
[2024-11-28] MEDS ORDERED: BUDESONIDE 0.5 MG/2 ML AMPUL.NEB INH ONE (07:04)
[2024-11-28] MEDS ORDERED: LEVOTHYROXINE SODIUM 100 MCG TABLET ONE ×2 (08:16→09:33)
[2024-11-28] MEDS ORDERED: ENOXAPARIN SODIUM 40 MG/0.4 ML SYRINGE SUBQ ONE (08:16)
[2024-11-28] MEDS ORDERED: PANTOPRAZOLE SODIUM 40 MG TABLET.DR PO ONE (08:16)
[2024-11-28] MEDS ORDERED: METHYLPREDNISOLONE SOD SUCC/PF 40 MG/ML VIAL ONE (08:16)
[2024-11-28] MEDS ORDERED: TAMSULOSIN HCL 0.4 MG CAPSULE PO ONE (08:16)
[2024-11-28 09:07] VITALS: TEMP 98
--- NOTE | 2024-11-28 11:18 | Discharge Summary ---
Transfer Discharge Sum: Prov Provider Date of admission: 11/25/24 15:19 Primary care physician: Garry Frances MD Admitting clinician: Mayte Marcial Attending physician on admission: Stefany Leigh Consults: 11/27/24 16:12 Consult to Respiratory Therapy Routine Comment: Consulting Provider: Physician Instructions: Reason for consultation: ADD HUMIDIFICATION TO O2 Has provider been notified: Yes Attending physician on discharge: Dominick Penaloza Discharging clinician: Dominick Penaloza Anticipated date of transfer: 11/28/24 DS: Diagnosis Discharge Diagnosis (1) Acute respiratory failure with hypoxia and hypercapnia: (2) COPD exacerbation: (3) SOB (shortness of breath): (4) Dehydration: (5) Tachycardia: (6) Hypothyroid: Qualifiers: Hypothyroidism type: unspecified Qualified Code(s): E03.9 - Hypothyroidism, unspecified (7) Hx of intestinal obstruction: (8) Leukopenia: Qualifiers: Leukopenia type: neutropenia Neutropenia type: unspecified Qualified Code(s): D70.9 - Neutropenia, unspecified (9) Hyperkalemia: (10) Ileostomy in place: Plan Continue steroids, abx, nebs, and BiPAP. Transfer to higher level of care. Transfer Discharge Sum: Med Medications Active and Home Medications: Home Medications albuterol sulfate 90 mcg/actuation aerosol inhaler 2 puff inhalation Q4H 10/15/24 [History Confirmed 11/25/24] budesonide 160 mcg-glycopyr 9 mcg-formot 4.8 mcg/actuation HFA inhaler (Breztri Aerosphere) 2 inh inhalation BID 10/15/24 [History Confirmed 11/25/24] fluticasone propionate 50 mcg/actuation nasal spray,suspension 2 spray intranasal DAILY 10/15/24 [History Confirmed 11/25/24] levothyroxine 200 mcg tablet 200 mcg PO DAILY 10/15/24 [History Confirmed 11/25/24] tadalafil 5 mg tablet 5 mg PO DAILY 10/15/24 [History Confirmed 11/25/24] tamsulosin 0.4 mg capsule 0.4 mg PO DAILY 10/15/24 [History Confirmed 11/25/24] Active Medications Acetaminophen (Acetaminophen 500 Mg Tablet) 500 mg PO Q6H PRN PRN Reason: MILD PAIN SCALE 1-4 Albuterol Sulfate (Ipratropium/Albuterol Sulfate 3 Ml Ampul.Neb) 3 ml INH Q4H [facility] Last Admin: 11/28/24 11:16 Dose: 3 ml Albuterol Sulfate (Ipratropium/Albuterol Sulfate 3 Ml Ampul.Neb) 3 ml INH Q2H PRN PRN Reason: Wheezing Last Admin: 11/27/24 13:15 Dose: 3 ml Bisacodyl (Bisacodyl 10 Mg Supp.Rect) 10 mg [place] DAILY PRN PRN Reason: Constipation Budesonide (Budesonide 0.5 Mg/2 Ml Ampul.Neb) 0.5 mg INH RBID [facility] Last Admin: 11/28/24 07:34 Dose: 0.5 mg Chlorphenir/Hydrocodone Polistirex (Hydrocodone/Chlorphen P-Stirex 5 Ml Freya.Er.12h) 5 ml PO Q12H PRN PRN Reason: Cough Last Admin: 11/27/24 15:41 Dose: 5 ml Enoxaparin Sodium (Enoxaparin Sodium 40 Mg/0.4 Ml Syringe) 40 mg SUBQ DAILY [facility] Last Admin: 11/28/24 08:17 Dose: 40 mg Azithromycin 500 mg/ Sodium (Chloride) 250 mls @ 250 mls/hr IV Q24H [facility] Stop: 11/28/24 11:59 Last Infusion: 11/27/24 13:26 Dose: Infused Sodium Chloride (Sodium Chloride) 1,000 mls @ 125 mls/hr IV CONT [facility] Last Infusion: 11/27/24 22:50 Dose: Infused Levothyroxine Sodium (Levothyroxine Sodium 100 Mcg Tablet) 200 mcg PO QDAC [facility] Last Admin: 11/28/24 08:17 Dose: 200 mcg Magnesium Hydroxide (Magnesium, Aluminum Hydroxide 30 Ml Oral.Susp) 30 ml PO DAILY PRN PRN Reason: gerd Methylprednisolone Sodium Succinate (Methylprednisolone Sod Succ/Pf 40 Mg/Ml Vial) 40 mg INJ Q8H [facility] Last Admin: 11/28/24 08:17 Dose: 40 mg Pantoprazole Sodium (Pantoprazole Sodium 40 Mg Tablet.Dr) 40 mg PO BID [facility] Last Admin: 11/28/24 08:17 Dose: 40 mg Tamsulosin HCl (Tamsulosin Hcl 0.4 Mg Capsule) 0.4 mg PO DAILY [facility] Last Admin: 11/28/24 08:17 Dose: 0.4 mg Transfer Discharge Sum: Hosp Hospital Course Hospital course: Pt was slowly improving from 11/25 to 11/27 with steroids, nebs, O2, and antibiotics. Last night, he acutely worsened and was placed on BiPAP and moved to the ER. His ABG showed respiratory acidosis with CO2 of 95 and pH of 7.07. He did respond to the BiPAP through the morning to the point he was able to avoid intubation and was stable for transport. [facility] was called and accepted as an ICU pt on BiPAP due to no ICU/PCU at this facility. Pulmonology was not thought to be needed at this point. Status at Discharge Cognitive capacity at transfer: Normal Functional capacity at transfer: bed bound (due to BiPAP) Overall status at transfer: patient is not back to baseline Time Spent with Patient Time attestation: Total time spent providing and/or coordinating transfer services: Total time spent: greater than 30 minutes Exam Constitutional: normal general appearance, distress noted (moderate) (respiratory), average body habitus, limitations noted (BiPAP) and alert Vital Signs - 24 hr 11/27/24 12:00 11/27/24 13:15 11/27/24 15:00 Temperature 97.7 F Pulse Rate Pulse Rate [Brachi al] 86 Respiratory Rate 25 H Blood Pressure [Le ft Arm] 110/59 Pulse Oximetry 95 97 97 Oxygen Delivery Me thod Room Air Oxygen Flow Rate 4 Fraction of Inspir ed Oxygen 11/27/24 16:00 11/27/24 20:00 11/27/24 20:00 Temperature 98.5 F 97.9 F Pulse Rate Pulse Rate [Brachi al] 79 80 Respiratory Rate 24 15 Blood Pressure [Le ft Arm] 95/54 105/53 Pulse Oximetry 95 95 94 L Oxygen Delivery Me thod Nasal Cannula Nasal Cannula Oxygen Flow Rate 4 4 Fraction of Inspir ed Oxygen 11/27/24 20:58 11/27/24 21:46 11/27/24 22:57 Temperature Pulse Rate 100 H Pulse Rate [Brachi al] 97 H Respiratory Rate 24 Blood Pressure [Le ft Arm] 125/54 Pulse Oximetry 92 L Oxygen Delivery Me thod Nasal Cannula BiPAP Oxygen Flow Rate 4 Fraction of Inspir ed Oxygen 36 28 11/27/24 23:02 11/28/24 00:28 11/28/24 02:00 Temperature Pulse Rate 89 Pulse Rate [Brachi al] 74 Respiratory Rate 20 Blood Pressure [Le ft Arm] 113/62 Pulse Oximetry 95 Oxygen Delivery Me thod BiPAP Oxygen Flow Rate Fraction of Inspir ed Oxygen 11/28/24 03:38 11/28/24 04:00 11/28/24 04:00 Temperature Pulse Rate 73 Pulse Rate [Brachi al] Respiratory Rate Blood Pressure [Le ft Arm] Pulse Oximetry 98 91 L Oxygen Delivery Me thod Oxygen Flow Rate Fraction of Inspir ed Oxygen 11/28/24 07:00 11/28/24 07:35 11/28/24 08:00 Temperature 98.0 F Pulse Rate Pulse Rate [Brachi al] 89 Respiratory Rate 18 22 Blood Pressure [Le ft Arm] 98/56 Pulse Oximetry 97 97 Oxygen Delivery Me thod BiPAP Oxygen Flow Rate Fraction of Inspir ed Oxygen HENMT: normocephalic, head/scalp atraumatic, hearing grossly normal bilaterally and external ears normal Eyes: PERRL, EOMs intact bilaterally and conjunctivae normal Neck/C-Spine: visual inspection normal, trachea midline and cervical full ROM noted Chest: inspection of chest normal and palpation of chest normal Respiratory: breath sounds equal bilaterally, abnormal respiratory effort (labored), wheezing noted and no retractions diminished throughout Cardiovascular: normal heart rate noted, regular rhythm noted and no murmur Gastrointestinal: abdomen normal to inspection, abdomen soft to palpation, nontender to palpation, nondistended and normoactive bowel sounds Back/Pelvis: thoracic spine ROM normal and lumbar spine ROM normal Extremities: normal to inspection, normal to palpation and full ROM Neurology: no movement abnormality noted and no fasciculations noted Psychiatry: mental status grossly normal, oriented x3 and cooperative Transfer Discharge Sum: Data Data Completed and Pending Completed studies during hospitalization: Labs, CXR, ABG. Pending studies at discharge: None Discharge Plan Discharge Disposition: [facility] Condition: Stable Discharge Medications: No Action albuterol sulfate 90 mcg/actuation HFA aerosol inhaler 2 puff INHALATION Q4H Patient Comments: INHALE TWO PUFFS BY MOUTH EVERY 4 HOURS fluticasone propionate 50 mcg/actuation spray,suspension 2 spray INTRANASAL DAILY Patient Comments: USE 2 SPRAYS IN EACH NOSTRIL ONCE DAILY levothyroxine 200 mcg tablet 200 mcg PO DAILY Patient Comments: TAKE 1 TABLET BY MOUTH EVERY MORNING ON EMPTY STOMACH 30 MINUTES BEFORE BREAKFAST tadalafil 5 mg tablet 5 mg PO DAILY Patient Comments: TAKE ONE TABLET BY MOUTH DAILY tamsulosin 0.4 mg capsule 0.4 mg PO DAILY Patient Comments: TAKE ONE CAPSULE BY MOUTH ONCE DAILY Marlyn Montes 160-9-4.8 mcg/actuation HFA aerosol inhaler 2 inh INHALATION BID Patient Comments: INHALE 2 PUFFS BY MOUTH TWICE DAILY Discharge Orders: Discharge Order (Routine); Ordered 11/28/24 Ordered By: Dominick Penaloza Activity: as per physical therapy Diet: advance to your usual diet Hospital Course: Pt was slowly improving from 11/25 to 11/27 with steroids, nebs, O2, and antibiotics. Last night, he acutely worsened and was placed on BiPAP and moved to the ER. His ABG showed respiratory acidosis with CO2 of 95 and pH of 7.07. He did respond to the BiPAP through the morning to the point he was able to avoid intubation and was stable for transport. [facility] was called and accepted as an ICU pt on BiPAP due to no ICU/PCU at this facility. Pulmonology was not thought to be needed at this point. Interventions: MED/SURG & ICU Observation Charge Sheet Last Done: 11/28/24 04:58 Follow-Ups: Garry Frances MD [Primary Care Provider] -
[2024-11-28] MEDS ORDERED: 0.9 % SODIUM CHLORIDE 250 ML IV ONE (11:49)
[2024-11-28] MEDS ORDERED: AZITHROMYCIN 500 MG VIAL ONE (11:49)
[2024-11-28 12:27] VITALS: BP 110/70; PULSE 72; RESP 18
== END 2024-11-28 12:43 | disposition short-term general hospital (02) | DRG 190 ==
LOC: MS 13:41 → ED 13:41 → OBSVTOIN 15:19 → MS 16:00 → EDHOLD 11-28 09:47
PROVIDERS: ADMIT Family Medicine; ATTEND Family Medicine
DX: J96.01 Acute respiratory failure with hypoxia; Z87.19 Personal history of other diseases of the digestive system; J96.02 Acute respiratory failure with hypercapnia; Z93.2 Ileostomy status; J44.1 Chronic obstructive pulmonary disease with (acute) exacerbation; E03.8 Other specified hypothyroidism; R07.89 Other chest pain; E86.0 Dehydration; R05.9 Cough, unspecified; Z93.3 Colostomy status; N18.9 Chronic kidney disease, unspecified; R00.0 Tachycardia, unspecified; Z72.0 Tobacco use; N17.8 Other acute kidney failure; D70.9 Neutropenia, unspecified; E87.5 Hyperkalemia